=== PATIENT | female | born 1995 | race Caucasian/White ===

== ENCOUNTER 2017-09-02 02:31 | Emergency (ER) | payer BC ==
[~2017-09-02] VITALS: Ht 165.1 cm; Wt 56.7 kg
[2017-09-02 02:58] VITALS: BP 146/92
[2017-09-02] MEDS ORDERED: ONDANSETRON 4 MG TAB.RAPDIS SL ONE (03:00)
[2017-09-02] MEDS ORDERED: ONDANSETRON 4 MG TAB.RAPDIS ONE (03:03)
== END 2017-09-02 04:09 | disposition home or self-care (01) ==
LOC: ER 02:33
DX: F10.129 Alcohol abuse with intoxication, unspecified (principal); F41.9 Anxiety disorder, unspecified
CPT/HCPCS: A4606; Q0162; Z7610